=== PATIENT | female | born 1965 | race Caucasian/White ===

== ENCOUNTER 2018-09-10 13:58 | Emergency (ER) | payer SELFPAY ==
[2018-09-10 14:10] VITALS: BP 133/78; PULSE 73; RESP 16; TEMP 97.6; O2SAT 98
--- NOTE | 2018-09-10 15:08 | C.PDOC ---
History Of Present Illness 53 year old female presents to the ED for evaluation of generalized weakness and intermittent hot flashes which began around 10 days ago. Patient states [place] the [place] ago and is concerned about an incident where she may have been exposed to radiation from the . Patient also reports currently all symptoms resolved. Patient was recently seen at [facility] and underwent EKG, CXR, d-dimer, troponin, ESR and CRP all of which were negative. Patient denies fever, chills, vomiting. Time Seen by Provider: 09/10/18 14:15 Chief Complaint (Nursing): Medical Clearance History Per: Patient History/Exam Limitations: no limitations Onset/Duration Of Symptoms: Days (10) Current Symptoms Are (Timing): Still Present Additional History Per: Patient Past Medical History Reviewed: Historical Data, Nursing Documentation, Vital Signs Vital Signs: Last Vital Signs Temp 97.6 F 09/10/18 14:02 Pulse 73 09/10/18 14:02 Resp 16 09/10/18 14:02 BP 133/78 09/10/18 14:02 Pulse Ox 98 09/10/18 14:02 - Medical History PMH: No Chronic Diseases Surgical History: No Surg Hx Family History: States: Unknown Family Hx - Social History Hx Alcohol Use: No Hx Substance Use: No - Immunization History Hx Tetanus Toxoid Vaccination: No Hx Influenza Vaccination: No Hx Pneumococcal Vaccination: No Review Of Systems Constitutional: Positive for: Weakness. Negative for: Fever, Chills Gastrointestinal: Negative for: Nausea, Vomiting Physical Exam - Physical Exam Appears: Non-toxic, No Acute Distress Skin: Normal Color, Warm, Dry, No Rash Head: Atraumatic, Normacephalic Eye(s): bilateral: Normal Inspection Oral Mucosa: Moist Throat: No Erythema, No Exudate Neck: Normal ROM, Trachea Midline, Supple, Other (No tyroid swelling or nodules) Lymphatic: Normal Exam Chest: Symmetrical, No Deformity, No Tenderness Cardiovascular: Rhythm Regular, No Murmur Respiratory: Normal Breath Sounds, No Rales, No Rhonchi, No Wheezing Gastrointestinal/Abdominal: Soft, No Tenderness Back: Normal Inspection, No CVA Tenderness Extremity: Normal ROM, No Swelling Neurological/Psych: Oriented x3, Normal Speech, Normal Cognition Gait: Steady ED Course And Treatment O2 Sat by Pulse Oximetry: 98 (on RA) Pulse Ox Interpretation: Normal Disposition - Disposition Referrals: [facility] at [facility] [Outside] Disposition: HOME/ ROUTINE Disposition Time: 15:05 Condition: STABLE Additional Instructions: This could be hyperthyroidism or menopause. Follow up with the medical doctor within 1-2 days. Return if worsened. Instructions: Hot Flashes Forms: [employer] (Haitian) - Clinical Impression Clinical Impression: Hot flashes - PA / ROLL TENSION TESTER / Resident Statement MD/DO has reviewed & agrees with the documentation as recorded. - Scribe Statement The provider has reviewed the documentation as recorded by the Scribe (Beverly Doan) All medical record entries made by the Scribe were at my direction and personally dictated by me. I have reviewed the chart and agree that the record accurately reflects my personal performance of the history, physical exam, medical decision making, and the department course for this patient. I have also personally directed, reviewed, and agree with the discharge instructions and disposition.
== END 2018-09-10 15:14 | disposition home or self-care (01) ==
LOC: C.ER 13:58
DX: N95.1 Menopausal and female climacteric states (principal)

== ENCOUNTER 2018-09-29 00:43 | Emergency (ER) | payer SELFPAY ==
[2018-09-29 00:50] VITALS: BP 124/81; PULSE 80; RESP 18; TEMP 97.7; O2SAT 98
--- NOTE | 2018-09-29 03:37 | C.PDOC ---
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 Patient has lived in [place], states that for approximately 2 years, she has been sleeping a lot during the day, had a 1 week period where she went blind and saw only black, vision came back about 1 week later, now remains blurry at times. She states she flew here to [place] on 08/30 and while she was on the plane, she developed a burning skin feeling. She states the next day, she began having muscle aches which make it difficult for her to walk. She also reports numbness over bilateral parietal scalp for months which for the last 2 days has become more a of an intermittent headache. She states that she came to [place] for a reason unrelated to her medical problems and does not wish to discuss it. Patient has been to ED 3 times previously this month for the same symptoms. She went to [facility] and had negative labs including CBC, CMP, Trop, D dimer, CXR, ESR, CRP. Patient thinks she may have been exposed to nuclear radiation but denies living near a power plant or having any nuclear weaponry in her area and states she has no evidence of such exposure. She also thinks that she is being poisoned by someone who would sneak into her home on weekends while she was out shopping but does not know who it could be. She notes that a recent article that emerged online of a [employer] student in [place] who was found to be poisoning his black roommate came to her attention so she thinks she must be being poisoned and is requesting tests for poisoning. Time Seen by Provider: 09/29/18 01:02 Chief Complaint (Nursing): Medical Clearance Past Medical History Vital Signs: Last Vital Signs Temp 97.7 F 09/29/18 00:49 Pulse 80 09/29/18 00:49 Resp 18 09/29/18 02:36 BP 124/81 09/29/18 00:49 Pulse Ox 98 09/29/18 00:49 Family History: States: Unknown Family Hx - Social History Hx Alcohol Use: No Hx Substance Use: No - Immunization History Hx Tetanus Toxoid Vaccination: No Hx Influenza Vaccination: No Hx Pneumococcal Vaccination: No Review Of Systems Except As Marked, All Systems Reviewed And Found Negative. Constitutional: Negative for: Fever Cardiovascular: Negative for: Chest Pain Physical Exam - Physical Exam Additional Physical Exam Comments: Gen: NAD Head: NC/AT Eyes: PERRL ENT: MMM Neck: Supple Chest: No tenderness CV: Regular rate Lungs: CTA b/l Abd: Soft, NT Back: No CVA tenderness Extremities: No edema Skin: No rash Neuro: Alert, no focal deficit. CN II to XII intact. Motor 5/5 x 4. Sensation to light touch intact bilaterally. FTN, HTS normal. Romberg normal. Gait normal. ED Course And Treatment O2 Sat by Pulse Oximetry: 98 Medical Decision Making Medical Decision Making: Patient declined repeat blood work. I informed patient that multiple ED visits have not found cause of her symptoms and further outpatient work up may be indicated but outpatient testing not all available in ED setting. Clinic information provided. Disposition - Disposition Referrals: [facility] at [facility] [Outside] Disposition: HOME/ ROUTINE Disposition Time: 02:36 Condition: STABLE Forms: [employer] (Macedonian) - Clinical Impression Clinical Impression: Medical assessment
== END 2018-09-29 02:36 | disposition home or self-care (01) ==
LOC: C.ER 00:43
DX: Z00.00 Encounter for general adult medical examination without abnormal findings (principal)

== ENCOUNTER 2018-12-26 11:07 | Emergency (ER) | payer SELFPAY ==
[2018-12-26 11:28] VITALS: BMI 22.6
[2018-12-26 11:41] VITALS: BP 102/66; PULSE 71; RESP 17; TEMP 97.8; O2SAT 98
--- NOTE | 2018-12-26 12:06 | C.PDOC ---
History Of Present Illness 53 y/o female presents to the ED for evaluation of chest pain for 4 months. Patient was seen numerous times in various ERs and urgent cares. Of note, patient is a poor historian. Patient presents with a packet of information, including note from urgent care for further ED eval. She complains of chest pain, described as burning and bone pain. No nausea or vomiting. Patients records noted to include negative lab work including dimer as well as negative CT Angio. Time Seen by Provider: 12/26/18 11:38 Chief Complaint (Nursing): Chest Pain History Per: Patient History/Exam Limitations: no limitations Onset/Duration Of Symptoms: Days Current Symptoms Are (Timing): Still Present Quality: Burning Past Medical History Reviewed: Historical Data, Nursing Documentation, Vital Signs Vital Signs: Last Vital Signs Temp 97.8 F 12/26/18 11:33 Pulse 71 12/26/18 11:33 Resp 17 12/26/18 11:33 BP 102/66 12/26/18 11:33 Pulse Ox 98 12/26/18 11:33 Family History: States: Unknown Family Hx - Social History Hx Alcohol Use: No Hx Substance Use: No - Immunization History Hx Tetanus Toxoid Vaccination: No Hx Influenza Vaccination: No Hx Pneumococcal Vaccination: No Review Of Systems Except As Marked, All Systems Reviewed And Found Negative. Constitutional: Negative for: Fever, Chills, Sweats Eyes: Negative for: Vision Change Cardiovascular: Positive for: Chest Pain (and "bone pain"). Negative for: Palpitations Respiratory: Negative for: Cough, Shortness of Breath Gastrointestinal: Negative for: Vomiting, Diarrhea Musculoskeletal: Negative for: Back Pain Skin: Negative for: Rash Neurological: Negative for: Confusion, Altered Mental Status, Headache, Dizziness Physical Exam - Physical Exam Appears: Non-toxic, No Acute Distress Skin: Normal Color, Warm, Dry, No Diaphoretic Head: Atraumatic, Normacephalic Eye(s): bilateral: Normal Inspection, PERRL, EOMI Oral Mucosa: Moist Neck: Normal ROM Chest: Symmetrical, No Deformity, No Tenderness Cardiovascular: Rhythm Regular, No Murmur Respiratory: Normal Breath Sounds, No Rales, No Rhonchi, No Wheezing Gastrointestinal/Abdominal: Soft, No Tenderness, No Distention Extremity: Bilateral: Atraumatic, Normal Color And Temperature Pulses: Left Dorsalis Pedis: Normal, Right Dorsalis Pedis: Normal Neurological/Psych: Oriented x3, Normal Speech, Normal Cognition, Normal Cranial Nerves Gait: Steady ED Course And Treatment ECG: Interpreted By Me ECG Rhythm: Sinus Rhythm Interpretation Of ECG: No ST or T wave changes Rate From EC O2 Sat by Pulse Oximetry: 98 (RA) Pulse Ox Interpretation: Normal Medical Decision Making Medical Decision Making: At this time pt is refusing to have laboratory work. Explained risks of leaving without further testing. Pt continues to refuse tests and chooses to leave AMA. I discussed the risks in detail, including and disability. Pt is AAOx3, with clear speech, and signs out AMA. i have explaine dpotential missed dx including heart attack, epidural abscess, other cardiac pathology The patient declines laboratory work as recommended for medical evaluation. This action is against my medical advice to the patient and with informed refusal. The patient was told that this evaluation is necessary and a full explanation of the rationale was given. The risks of refusing were explained to the patient and include, but are not limited to, worsening of known or currently unknown conditions, permanent disability and from undiagnosed or untreated conditions. The patient has the capacity to make this decision and has the capacity to understand the clinical situation and my explanation of the risks of refusing this test The patient voluntarily accepts these risks. The patient was given the opportunity to ask questions and reconsider. Disposition Counseled Patient/Family Regarding: Diagnosis, Need For Followup - Disposition Referrals: [facility] at [facility] [Outside] Disposition: AGAINST MEDICAL ADVICE Disposition Time: 12:15 Condition: STABLE Additional Instructions: return to any er with worsening symptoms or concerns. Instructions: Chest Pain, Leaving Against Medical Advice Forms: [facility] (Serbian) - POA Present On Arrival: None Core Measure Indicators: Chest Pain - Clinical Impression Clinical Impression: Chest pain - Scribe Statement The provider has reviewed the documentation as recorded by the Alejandro Abrams Provider Attestation: All medical record entries made by the Alfieibammy were at my direction and personally dictated by me. I have reviewed the chart and agree that the record accurately reflects my personal performance of the history, physical exam, medical decision making, and the department course for this patient. I have also personally directed, reviewed, and agree with the discharge instructions and disposition.
--- NOTE | 2018-12-30 21:54 | CARD ---
APPROVED REPORT Date of service: 12/26/2018 EKG Measurement Heart [id number] <Conclusion> Normal sinus rhythm Normal ECG
== END 2018-12-26 12:10 | disposition left against medical advice (07) ==
LOC: C.ER 11:07
DX: R07.9 Chest pain, unspecified (principal)